=== PATIENT | female | born 2005 | race Caucasian/White ===

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

== ENCOUNTER → 2024-09-01 | Outpatient (CLI) | payer BC | LOC: LAB SHORT 11:36 → LAB 11:36 | DX: R82.81 Pyuria (principal) | CPT/HCPCS: 87086 ==

== ENCOUNTER 2024-09-06 21:46 | Emergency (ER) | payer BC ==
[~2024-09-06] VITALS: Ht 152.4 cm; Wt 54.4 kg
[2024-09-07 02:19] LABS: Source, Urine Clean Catch
[2024-09-07 02:23] LABS: Bilirubin, Urine Neg (Neg); Glucose Qualitative, Urine Neg (Neg); Ketones, Urine 4+ (Neg); Leukocyte Esterase, Urine Neg (Neg); Protein, Urine 2+ (Neg); Specific Gravity, Urine 1.025 (1.003-1.022); Urobilinogen, Urine 1+ (Normal)
[2024-09-07 02:28] VITALS: BP 105/70
[2024-09-07 02:36] LABS: Color, Urine Yellow (P-Yellow)
[2024-09-07 02:37] LABS: Red Blood Cells, Urine 0-2 /hpf (0-2); White Blood Cells, Urine 0-2 /hpf (0-5)
[2024-09-07] MEDS ORDERED: METO5A PO (02:59)
[2024-09-08] MEDS ORDERED: VITAMIN B-625 MG PO (12:55)
[2024-09-08] MEDS ORDERED: PROM12.5S PR (12:55)
== END 2024-09-07 03:21 | disposition home or self-care (01) ==
LOC: ER 21:46
PROVIDERS: Student in an Organized Health Care Education/Training Program
DX: O21.9 Vomiting of pregnancy, unspecified (principal); O99.891 Other specified diseases and conditions complicating pregnancy; R10.9 Unspecified abdominal pain; Z3A.01 Less than 8 weeks gestation of pregnancy; Z79.2 Long term (current) use of antibiotics; Z88.0 Allergy status to penicillin
CPT/HCPCS: 76770; 76801; 81001; 99284-25; A9270

== ENCOUNTER 2024-09-08 07:38 | Emergency (ER) | payer BC ==
[~2024-09-08] VITALS: Ht 152.4 cm; Wt 52.2 kg
[~2024-09-08 07:38] MED LIST changes: +METO5A PO
[2024-09-08] MEDS ORDERED: D5W-NS 1,000 ML IV SCH (08:25)
[2024-09-08] MEDS ORDERED: Ondansetron HCl 2 MG / ML 2ML Vial IV ONE (08:25)
[2024-09-08 09:28] LABS: BASOPHILS ABSOLUTE AUTO 0.06 K/mm3 (0.00-0.23); BASOPHILS PERCENT AUTO 1 % (0-2); EOSINOPHILS ABSOLUTE AUTO 0.01 K/mm3 (0.00-0.68); EOSINOPHILS PERCENT AUTO 0 % (0-6); Hematocrit 43.9 % (33.0-51.0); Hemoglobin 15.4 g/dL (11.5-16.0); IMMATURE GRAN ABSOLUTE AUTO 0.02 K/mm3 (0.00-0.10); IMMATURE GRAN PERCENT AUTO 0 % (0-1); LYMPHOCYTES ABSOLUTE AUTO 1.17 K/mm3 (0.84-5.20); LYMPHOCYTES PERCENT AUTO 11 % (21-46); MONOCYTES ABSOLUTE AUTO 0.64 K/mm3 (0.16-1.47); MONOCYTES PERCENT AUTO 6 % (4-13); Mean Corpuscular HGB Conc 35.1 g/dL (31.5-36.5); Mean Corpuscular Volume 85 fL (80-100); NEUTROPHILS ABSOLUTE AUTO 8.60 K/mm3 (1.96-9.15); NEUTROPHILS PERCENT AUTO 82 % (41-73); NRBC ABSOLUTE 0.00 K/mm3 (0.00-0.02); NRBC Auto 0.0 /100 WBC (0.0-0.2); Platelet Count 313 K/mm3 (150-400); RDW Coefficient Variation 11.9 % (11.7-14.2); RDW Standard Deviation 36.4 fL (35.1-46.3)
[2024-09-08 09:58] LABS: Alanine Aminotransfer (ALT/SGP 20.0 U/L (12-78); Albumin, Blood 4.3 g/dL (3.4-5.0); Albumin/Globulin Ratio 1.1 (0.8-1.8); Anion Gap 16.0 mmol/L (3-11); Aspartate Aminotrans (AST/SGOT 18.0 U/L (12-37); Bilirubin, Direct 0.2 mg/dL (0.0-0.3); Bilirubin, Indirect 0.4 mg/dL (0.1-0.7); Bilirubin, Total 0.6 mg/dL (0.1-1.0); Blood Urea Nitrogen 8.0 mg/dL (8-24); CO2, Blood 17.0 mmol/L (21-32); Calcium, Blood 9.6 mg/dL (8.5-10.1); Chloride, Blood 104.0 mmol/L (98-108); Creatinine, Blood 0.48 mg/dL (0.40-1.00); Globulin, Blood 3.8 g/dL (2.2-4.0); Glucose, Blood 72.0 mg/dL (70-99); Magnesium, Blood 1.9 mg/dL (1.6-2.4); Potassium, Blood 4.0 mmol/L (3.5-5.5); Sodium, Blood 133.0 mmol/L (136-145); Total Protein, Blood 8.1 g/dL (6.4-8.2)
[2024-09-08] MEDS ORDERED: DiphenhydrAMINE HCl 50 MG/ML 1ML Vial IV ONE (11:55)
[2024-09-08] MEDS ORDERED: Metoclopramide HCl 5MG / ML 2ML Vial IV ONE (11:55)
[2024-09-08 12:43] VITALS: BP 105/69
[2024-09-08] MEDS ORDERED: PROM12.5S PR (12:55)
[2024-09-08] MEDS ORDERED: VITAMIN B-625 MG PO (12:55)
== END 2024-09-08 13:31 | disposition home or self-care (01) ==
LOC: ER 07:38
PROVIDERS: Student in an Organized Health Care Education/Training Program
DX: O21.9 Vomiting of pregnancy, unspecified (principal); O99.281 Endocrine, nutritional and metabolic diseases complicating pregnancy, first trimester; E86.0 Dehydration; E88.89 Other specified metabolic disorders; Z3A.01 Less than 8 weeks gestation of pregnancy; Z88.0 Allergy status to penicillin
CPT/HCPCS: 80048; 80076; 83690; 83735; 85025; 96361; 96374; 96375; 99283-25; J1200; J2405; J2765; J7042; J7120

== ENCOUNTER 2024-09-14 19:37 | Emergency (ER) | payer BC ==
[~2024-09-14] VITALS: Ht 154.9 cm; Wt 52.2 kg
[~2024-09-14 19:37] MED LIST changes: +PROM12.5S PR; +VITAMIN B-625 MG PO
[2024-09-14 20:10] VITALS: BP 133/96
[2024-09-14] MEDS ORDERED: Metoclopramide HCl 5MG / ML 2ML Vial IV ONE (20:15)
[2024-09-14] MEDS ORDERED: NS 1,000 ML IV SCH (20:20)
[2024-09-14 20:34] LABS: BASOPHILS ABSOLUTE AUTO 0.04 K/mm3 (0.00-0.23); BASOPHILS PERCENT AUTO 0 % (0-2); EOSINOPHILS ABSOLUTE AUTO 0.00 K/mm3 (0.00-0.68); EOSINOPHILS PERCENT AUTO 0 % (0-6); Hematocrit 44.1 % (33.0-51.0); Hemoglobin 14.9 g/dL (11.5-16.0); IMMATURE GRAN ABSOLUTE AUTO 0.03 K/mm3 (0.00-0.10); IMMATURE GRAN PERCENT AUTO 0 % (0-1); LYMPHOCYTES ABSOLUTE AUTO 1.22 K/mm3 (0.84-5.20); LYMPHOCYTES PERCENT AUTO 11 % (21-46); MONOCYTES ABSOLUTE AUTO 0.78 K/mm3 (0.16-1.47); MONOCYTES PERCENT AUTO 7 % (4-13); Mean Corpuscular HGB Conc 33.8 g/dL (31.5-36.5); Mean Corpuscular Volume 87 fL (80-100); NEUTROPHILS ABSOLUTE AUTO 9.01 K/mm3 (1.96-9.15); NEUTROPHILS PERCENT AUTO 81 % (41-73); NRBC ABSOLUTE 0.00 K/mm3 (0.00-0.02); NRBC Auto 0.0 /100 WBC (0.0-0.2); Platelet Count 288 K/mm3 (150-400); RDW Coefficient Variation 12.0 % (11.7-14.2); RDW Standard Deviation 38.4 fL (35.1-46.3)
[2024-09-14 20:42] LABS: Source, Urine Clean Catch
[2024-09-14 20:45] LABS: Bilirubin, Urine Neg (Neg); Glucose Qualitative, Urine Neg (Neg); Ketones, Urine 4+ (Neg); Leukocyte Esterase, Urine 2+ (Neg); Protein, Urine 2+ (Neg); Specific Gravity, Urine 1.030 (1.003-1.022); Urobilinogen, Urine NORM (Normal)
[2024-09-14 20:46] LABS: Color, Urine Yellow (P-Yellow)
[2024-09-14 20:52] LABS: White Blood Cells, Urine 50-100 /hpf (0-5)
[2024-09-14 20:54] LABS: Alanine Aminotransfer (ALT/SGP 26.0 U/L (12-78); Albumin, Blood 4.3 g/dL (3.4-5.0); Albumin/Globulin Ratio 1.0 (0.8-1.8); Anion Gap 11.0 mmol/L (3-11); Aspartate Aminotrans (AST/SGOT 19.0 U/L (12-37); Bilirubin, Total 0.6 mg/dL (0.1-1.0); Blood Urea Nitrogen 8.0 mg/dL (8-24); CO2, Blood 21.0 mmol/L (21-32); Calcium, Blood 9.4 mg/dL (8.5-10.1); Chloride, Blood 105.0 mmol/L (98-108); Creatinine, Blood 0.46 mg/dL (0.40-1.00); Globulin, Blood 4.1 g/dL (2.2-4.0); Glucose, Blood 82.0 mg/dL (70-99); Potassium, Blood 4.3 mmol/L (3.5-5.5); Sodium, Blood 133.0 mmol/L (136-145); Total Protein, Blood 8.4 g/dL (6.4-8.2)
== END 2024-09-14 22:22 | disposition home or self-care (01) ==
LOC: ER 19:37
PROVIDERS: Physician Assistant
DX: O99.611 Diseases of the digestive system complicating pregnancy, first trimester (principal); K52.9 Noninfective gastroenteritis and colitis, unspecified; Z3A.08 8 weeks gestation of pregnancy; Z88.0 Allergy status to penicillin; Z79.899 Other long term (current) drug therapy
CPT/HCPCS: 80053; 81001; 85025; 87086; 96374; 99283-25; J2765; J7030

== ENCOUNTER 2024-09-25 16:14 | Inpatient (IN) | payer BC ==
[~2024-09-25] VITALS: Ht 154.9 cm; Wt 48.0 kg
[2024-09-25] MEDS ORDERED: NS 1,000 ML IV SCH ×2 (16:30→21:10)
[2024-09-25] MEDS ORDERED: Metoclopramide HCl 5MG / ML 2ML Vial IV ONE (16:30)
[2024-09-25 17:23] LABS: BASOPHILS ABSOLUTE AUTO 0.02 K/mm3 (0.00-0.23); BASOPHILS PERCENT AUTO 0 % (0-2); EOSINOPHILS ABSOLUTE AUTO 0.00 K/mm3 (0.00-0.68); EOSINOPHILS PERCENT AUTO 0 % (0-6); Hematocrit 43.7 % (33.0-51.0); Hemoglobin 15.4 g/dL (11.5-16.0); IMMATURE GRAN ABSOLUTE AUTO 0.03 K/mm3 (0.00-0.10); IMMATURE GRAN PERCENT AUTO 0 % (0-1); LYMPHOCYTES ABSOLUTE AUTO 1.19 K/mm3 (0.84-5.20); LYMPHOCYTES PERCENT AUTO 10 % (21-46); MONOCYTES ABSOLUTE AUTO 0.91 K/mm3 (0.16-1.47); MONOCYTES PERCENT AUTO 8 % (4-13); Mean Corpuscular HGB Conc 35.2 g/dL (31.5-36.5); Mean Corpuscular Volume 86 fL (80-100); NEUTROPHILS ABSOLUTE AUTO 9.59 K/mm3 (1.96-9.15); NEUTROPHILS PERCENT AUTO 82 % (41-73); NRBC ABSOLUTE 0.00 K/mm3 (0.00-0.02); NRBC Auto 0.0 /100 WBC (0.0-0.2); Platelet Count 277 K/mm3 (150-400); RDW Coefficient Variation 11.9 % (11.7-14.2); RDW Standard Deviation 37.4 fL (35.1-46.3)
[2024-09-25 17:38] LABS: Alanine Aminotransfer (ALT/SGP 25.0 U/L (12-78); Albumin, Blood 4.1 g/dL (3.4-5.0); Albumin/Globulin Ratio 0.9 (0.8-1.8); Anion Gap 15.0 mmol/L (3-11); Aspartate Aminotrans (AST/SGOT 17.0 U/L (12-37); Bilirubin, Total 0.5 mg/dL (0.1-1.0); Blood Urea Nitrogen 7.0 mg/dL (8-24); CO2, Blood 18.0 mmol/L (21-32); Calcium, Blood 9.3 mg/dL (8.5-10.1); Chloride, Blood 105.0 mmol/L (98-108); Creatinine, Blood 0.3 mg/dL (0.40-1.00); Globulin, Blood 4.4 g/dL (2.2-4.0); Glucose, Blood 73.0 mg/dL (70-99); Potassium, Blood 3.7 mmol/L (3.5-5.5); Sodium, Blood 134.0 mmol/L (136-145); Total Protein, Blood 8.5 g/dL (6.4-8.2)
[2024-09-25 19:31] LABS: Source, Urine Voided
[2024-09-25 19:39] LABS: Bilirubin, Urine Neg (Neg); Color, Urine Yellow (P-Yellow); Glucose Qualitative, Urine Neg (Neg); Ketones, Urine 4+ (Neg); Leukocyte Esterase, Urine 2+ (Neg); Protein, Urine 2+ (Neg); Specific Gravity, Urine 1.030 (1.003-1.022); Urobilinogen, Urine NORM (Normal)
[2024-09-25 20:50] LABS: Red Blood Cells, Urine 25-50 /hpf (0-2)
[2024-09-25] MEDS ORDERED: CEFDINIR300 M4 PO (21:13)
--- NOTE | 2024-09-26 | NUR ---
ARRIVAL NOTE PT ARRIVED TO UNIT AT 0000 TODAY R/T HYPEREMESIS AND UTI. PT A/OX4 WITH VSS. DENIES CHEST PAIN, N/V, SOB, N/T. REPORTS DISCOMFORT TO LOWER BACK AND LEFT ABD TENDERNESS. REPORTS CHRONIC CONSTIPATION WITH UNKNOWN LAST BM, POSSIBLY ONE WEEK AGO. IV PATENT AND SL. IS 10 WEEKS , . DENIES VAGINAL BLEEDING OR CRAMPING. ORIENTATION TO ROOM PROVIDED. [facility], STAYING IN OWN CLOTHING FOR COMFORT- RISK AND BENEFIT EDU PROVIDED. S/O ATTENTIVE AT BEDSIDE. PT DRINKING APPLE JUICE IN BED WHILE WATCHING TV AND TALKING WITH S/O, DE
[2024-09-26 00:02] VITALS: BP 116/70
[2024-09-26] MEDS ORDERED: Ondansetron HCl 2 MG / ML 2ML Vial IV PRN (01:10)
[2024-09-26] MEDS ORDERED: CeFAZolin Sodium 2,000 MG in NS 100 ML IV SCH (01:29)
[2024-09-26] MEDS ORDERED: Metoclopramide HCl 5MG / ML 2ML Vial IV PRN (02:30)
--- NOTE | 2024-09-26 04:17 | NUR ---
NOC SUMMARY- PT HAVING EPISODES OF NAUSEA WITH DRY HEAVES. PT MEDICATED PER MAR WITH SOME RELIEF. PT DENIES ANY OTHER ISSUES. CALL LIGHT IN REACH.
[2024-09-26 05:04] VITALS: BP 117/66
[2024-09-26] MEDS ORDERED: Metoclopramide HCl 5MG / ML 2ML Vial IV SCH (06:00)
[2024-09-26 08:17] VITALS: BP 109/67
[2024-09-26] MEDS ORDERED: Polyethylene Glycol 3350 17 gm PO PRN (09:25)
[2024-09-26 14:44] VITALS: BP 114/69
--- NOTE | 2024-09-26 17:20 | NUR ---
SHIFT SUMMARY PATIENT IS AOX4 IND/SBA IN ROOM. SHOWERED TODAY AND AMBULATES IN THE ELDER. DENIES PASSING FLATUS, MEDICATED PER EMAR FOR NAUSEA. TAKING IN SMALL SIPS OF WATER. REPORTS CRAMPING IN HER ABD. REPORTS NO BM FOR OVER 1 WEEK, ONE BOUGHT OF EMESIS TODAY. IV FLUIDS RUNNING. CALL LIGHT IN REACH. AND VSS.
[2024-09-26 19:46] VITALS: BP 130/79
--- NOTE | 2024-09-26 22:16 | NUR ---
ASSUMING CARE OF PATIENT AT THIS TIME. REPORT FROM JUNO THOMAS.
--- NOTE | 2024-09-27 03:29 | NUR ---
RN TO ROOM TO ROUND; PT SLEEPING WITH EQUAL AND UNLABORED BREATHING; CALL LIGHT WITHIN REACH. PARTNER AT BEDSIDE.
[2024-09-27 04:32] VITALS: BP 112/69
[2024-09-27 05:12] LABS: BASOPHILS ABSOLUTE AUTO 0.02 K/mm3 (0.00-0.23); BASOPHILS PERCENT AUTO 0 % (0-2); EOSINOPHILS ABSOLUTE AUTO 0.09 K/mm3 (0.00-0.68); EOSINOPHILS PERCENT AUTO 1 % (0-6); Hematocrit 38.1 % (33.0-51.0); Hemoglobin 12.9 g/dL (11.5-16.0); IMMATURE GRAN ABSOLUTE AUTO 0.03 K/mm3 (0.00-0.10); IMMATURE GRAN PERCENT AUTO 0 % (0-1); LYMPHOCYTES ABSOLUTE AUTO 1.89 K/mm3 (0.84-5.20); LYMPHOCYTES PERCENT AUTO 23 % (21-46); MONOCYTES ABSOLUTE AUTO 0.87 K/mm3 (0.16-1.47); MONOCYTES PERCENT AUTO 11 % (4-13); Mean Corpuscular HGB Conc 33.9 g/dL (31.5-36.5); Mean Corpuscular Volume 86 fL (80-100); NEUTROPHILS ABSOLUTE AUTO 5.27 K/mm3 (1.96-9.15); NEUTROPHILS PERCENT AUTO 65 % (41-73); NRBC ABSOLUTE 0.00 K/mm3 (0.00-0.02); NRBC Auto 0.0 /100 WBC (0.0-0.2); Platelet Count 232 K/mm3 (150-400); RDW Coefficient Variation 11.9 % (11.7-14.2); RDW Standard Deviation 37.6 fL (35.1-46.3)
--- NOTE | 2024-09-27 05:30 | NUR ---
SHIFT SUMMARY NO ACUTE EVENTS OVERNIGHT. PT SLEPT MOST OF SHIFT. PT PARTNER AT BEDSIDE.
[2024-09-27 06:06] LABS: Anion Gap 14.0 mmol/L (3-11); Blood Urea Nitrogen 3.0 mg/dL (8-24); CO2, Blood 14.0 mmol/L (21-32); Calcium, Blood 8.9 mg/dL (8.5-10.1); Chloride, Blood 109.0 mmol/L (98-108); Creatinine, Blood 0.36 mg/dL (0.40-1.00); Glucose, Blood 59.0 mg/dL (70-99); Potassium, Blood 3.9 mmol/L (3.5-5.5); Sodium, Blood 133.0 mmol/L (136-145)
[2024-09-27 07:26] VITALS: BP 114/63
[2024-09-27 14:49] VITALS: BP 121/68
--- NOTE | 2024-09-27 17:27 | NUR ---
Shift Summary pt resting. one episode of emesis early this am. Doing well since. Tolerating Regular diet without nausea/emesis. iv infusing. will continue to monitor.
[2024-09-27 19:25] VITALS: BP 114/62
--- NOTE | 2024-09-28 04:38 | NUR ---
NOC SUMMARY- PT HAS BEEN AMBULATING AND VOIDING. PT DENIES HAVING BM. PT GIVEN ORDERED BOWEL CARE. PT HAS NOT REPORTED ANY EPISODES OF NAUSEA. PT RESTING QUIETLY AND IN NO DISTRESS. CALL LIGHT IN REACH.
[2024-09-28 04:44] VITALS: BP 107/67
[2024-09-28 05:02] LABS: BASOPHILS ABSOLUTE AUTO 0.01 K/mm3 (0.00-0.23); BASOPHILS PERCENT AUTO 0 % (0-2); EOSINOPHILS ABSOLUTE AUTO 0.07 K/mm3 (0.00-0.68); EOSINOPHILS PERCENT AUTO 1 % (0-6); Hematocrit 32.8 % (33.0-51.0); Hemoglobin 11.6 g/dL (11.5-16.0); IMMATURE GRAN ABSOLUTE AUTO 0.02 K/mm3 (0.00-0.10); IMMATURE GRAN PERCENT AUTO 0 % (0-1); LYMPHOCYTES ABSOLUTE AUTO 2.18 K/mm3 (0.84-5.20); LYMPHOCYTES PERCENT AUTO 28 % (21-46); MONOCYTES ABSOLUTE AUTO 0.97 K/mm3 (0.16-1.47); MONOCYTES PERCENT AUTO 13 % (4-13); Mean Corpuscular HGB Conc 35.4 g/dL (31.5-36.5); Mean Corpuscular Volume 84 fL (80-100); NEUTROPHILS ABSOLUTE AUTO 4.47 K/mm3 (1.96-9.15); NEUTROPHILS PERCENT AUTO 58 % (41-73); NRBC ABSOLUTE 0.00 K/mm3 (0.00-0.02); NRBC Auto 0.0 /100 WBC (0.0-0.2); Platelet Count 209 K/mm3 (150-400); RDW Coefficient Variation 12.0 % (11.7-14.2); RDW Standard Deviation 36.7 fL (35.1-46.3)
[2024-09-28 05:25] LABS: Anion Gap 8.0 mmol/L (3-11); Blood Urea Nitrogen 3.0 mg/dL (8-24); CO2, Blood 22.0 mmol/L (21-32); Calcium, Blood 8.0 mg/dL (8.5-10.1); Chloride, Blood 112.0 mmol/L (98-108); Creatinine, Blood 0.28 mg/dL (0.40-1.00); Glucose, Blood 104.0 mg/dL (70-99); Potassium, Blood 3.3 mmol/L (3.5-5.5); Sodium, Blood 139.0 mmol/L (136-145)
[2024-09-28 08:45] VITALS: BP 113/69
[2024-09-28 15:40] VITALS: BP 103/64
[2024-09-28 19:42] VITALS: BP 109/58
--- NOTE | 2024-09-28 21:40 | NUR ---
ASSUMED CARE ASSUMED CARE OF PATIENT. REPORT RECEIVED FROM JUNO FISCHER. PT APPEARS TO BE SLEEPING COMFORTABLY IN BED, RESP EVEN/UNLABORED. HAS CALL LIGHT IN REACH. IVF INFUSING PER ORDERS. FAMILY ATTENTIVE AT BEDSIDE AND DENIES NEEDS/CONCERNS.
--- NOTE | 2024-09-29 03:30 | NUR ---
SHIFT SUMMARY NO ACUTE CHANGES TONIGHT. PT APPEARS TO HAVE SLEPT T/O ENTIRE NIGHT. IS A/OX4 WITH VSS. IVF INFUSING PER EMAR. REPORTS PASSING FLATUS. FAMILY SUPPORTIVE AT BEDSIDE. PLAN TO CONT AND ENCOURAGE BOWEL CARE. PT IS CURRENTLY RESTING IN BED WITH EYES CLOSED AND CALL LIGHT IN REACH. WILL GIVE REPORT TO ONCOMING RN.
[2024-09-29 03:37] VITALS: BP 114/73
[2024-09-29 07:22] VITALS: BP 120/66
[2024-09-29 08:25] LABS: BASOPHILS ABSOLUTE AUTO 0.02 K/mm3 (0.00-0.23); BASOPHILS PERCENT AUTO 0 % (0-2); EOSINOPHILS ABSOLUTE AUTO 0.10 K/mm3 (0.00-0.68); EOSINOPHILS PERCENT AUTO 2 % (0-6); Hematocrit 31.9 % (33.0-51.0); Hemoglobin 11.2 g/dL (11.5-16.0); IMMATURE GRAN ABSOLUTE AUTO 0.02 K/mm3 (0.00-0.10); IMMATURE GRAN PERCENT AUTO 0 % (0-1); LYMPHOCYTES ABSOLUTE AUTO 1.73 K/mm3 (0.84-5.20); LYMPHOCYTES PERCENT AUTO 30 % (21-46); MONOCYTES ABSOLUTE AUTO 0.58 K/mm3 (0.16-1.47); MONOCYTES PERCENT AUTO 10 % (4-13); Mean Corpuscular HGB Conc 35.1 g/dL (31.5-36.5); Mean Corpuscular Volume 84 fL (80-100); NEUTROPHILS ABSOLUTE AUTO 3.42 K/mm3 (1.96-9.15); NEUTROPHILS PERCENT AUTO 58 % (41-73); NRBC ABSOLUTE 0.00 K/mm3 (0.00-0.02); NRBC Auto 0.0 /100 WBC (0.0-0.2); Platelet Count 183 K/mm3 (150-400); RDW Coefficient Variation 12.6 % (11.7-14.2); RDW Standard Deviation 38.2 fL (35.1-46.3)
[2024-09-29 08:54] LABS: Anion Gap 7.0 mmol/L (3-11); Blood Urea Nitrogen 3.0 mg/dL (8-24); CO2, Blood 24.0 mmol/L (21-32); Calcium, Blood 8.3 mg/dL (8.5-10.1); Chloride, Blood 109.0 mmol/L (98-108); Creatinine, Blood 0.26 mg/dL (0.40-1.00); Glucose, Blood 94.0 mg/dL (70-99); Potassium, Blood 3.3 mmol/L (3.5-5.5); Sodium, Blood 137.0 mmol/L (136-145)
[2024-09-29] MEDS ORDERED: REGLAN1013 PO (09:30)
[2024-09-29 09:41] VITALS: BP 115/63
[2024-09-29] MEDS ORDERED: SENN187 PO (09:45)
[2024-09-29] MEDS ORDERED: DOCU100 PO (09:45)
[2024-09-29] MEDS ORDERED: MIRALAX17 GM PO (09:45)
--- NOTE | 2024-09-29 10:14 | NUR ---
discharged reviewed dc instructions w/pt; verbalized understanding. iv dc'd, catheter intact. vss. pt declined wc, electing to leave unit by ambulation, accompanied by family who had possessions and dc paperwork in hand.
== END 2024-09-29 10:20 | disposition home or self-care (01) | DRG 833 ==
LOC: ER 16:14 → ERHOLD 21:27 → SURS 21:27
PROVIDERS: Emergency Medicine; ADMIT Obstetrics & Gynecology
DX: O21.0 Mild hyperemesis gravidarum (principal); K59.00 Constipation, unspecified; O26.893 Other specified pregnancy related conditions, third trimester; R30.0 Dysuria; O99.611 Diseases of the digestive system complicating pregnancy, first trimester; Z3A.10 10 weeks gestation of pregnancy; Z88.0 Allergy status to penicillin; Z79.899 Other long term (current) drug therapy
CPT/HCPCS: 36415; 76857; 80048; 80053; 81001; 83690; 85025; 87086; 96374; 96375; 96376; 99285-25; A9270; G0378; J0690; J2405; J2765; J2919; J7030; J7120

== ENCOUNTER 2024-10-02 15:23 | Emergency (ER) | payer BC ==
[~2024-10-02] VITALS: Ht 154.9 cm; Wt 46.7 kg
[~2024-10-02 15:23] MED LIST changes: +CEFDINIR300 M4 PO; +DOCU100 PO; +MIRALAX17 GM PO; +REGLAN1013 PO; +SENN187 PO
[2024-10-02] MEDS ORDERED: Ondansetron HCl 2 MG / ML 2ML Vial IV ONE (16:05)
[2024-10-02 16:12] LABS: BASOPHILS ABSOLUTE AUTO 0.03 K/mm3 (0.00-0.23); BASOPHILS PERCENT AUTO 0 % (0-2); EOSINOPHILS ABSOLUTE AUTO 0.04 K/mm3 (0.00-0.68); EOSINOPHILS PERCENT AUTO 0 % (0-6); Hematocrit 44.0 % (33.0-51.0); Hemoglobin 15.4 g/dL (11.5-16.0); IMMATURE GRAN ABSOLUTE AUTO 0.03 K/mm3 (0.00-0.10); IMMATURE GRAN PERCENT AUTO 0 % (0-1); LYMPHOCYTES ABSOLUTE AUTO 1.92 K/mm3 (0.84-5.20); LYMPHOCYTES PERCENT AUTO 17 % (21-46); MONOCYTES ABSOLUTE AUTO 1.10 K/mm3 (0.16-1.47); MONOCYTES PERCENT AUTO 10 % (4-13); Mean Corpuscular HGB Conc 35.0 g/dL (31.5-36.5); Mean Corpuscular Volume 84 fL (80-100); NEUTROPHILS ABSOLUTE AUTO 8.49 K/mm3 (1.96-9.15); NEUTROPHILS PERCENT AUTO 73 % (41-73); NRBC ABSOLUTE 0.00 K/mm3 (0.00-0.02); NRBC Auto 0.0 /100 WBC (0.0-0.2); Platelet Count 327 K/mm3 (150-400); RDW Coefficient Variation 12.1 % (11.7-14.2); RDW Standard Deviation 36.6 fL (35.1-46.3)
[2024-10-02 16:44] LABS: Alanine Aminotransfer (ALT/SGP 32.0 U/L (12-78); Albumin, Blood 4.1 g/dL (3.4-5.0); Albumin/Globulin Ratio 1.0 (0.8-1.8); Anion Gap 14.0 mmol/L (3-11); Aspartate Aminotrans (AST/SGOT 16.0 U/L (12-37); Bilirubin, Total 0.5 mg/dL (0.1-1.0); Blood Urea Nitrogen 10.0 mg/dL (8-24); CO2, Blood 21.0 mmol/L (21-32); Calcium, Blood 9.7 mg/dL (8.5-10.1); Chloride, Blood 101.0 mmol/L (98-108); Creatinine, Blood 0.36 mg/dL (0.40-1.00); Globulin, Blood 4.0 g/dL (2.2-4.0); Glucose, Blood 97.0 mg/dL (70-99); Potassium, Blood 3.6 mmol/L (3.5-5.5); Sodium, Blood 132.0 mmol/L (136-145); Total Protein, Blood 8.1 g/dL (6.4-8.2)
[2024-10-02] MEDS ORDERED: METO5A (17:11)
[2024-10-02] MEDS ORDERED: PRED1 (17:11)
[2024-10-02] MEDS ORDERED: NS 1,000 ML IV SCH ×2 (17:15→18:30)
[2024-10-02 17:44] LABS: Source, Urine Clean Catch
[2024-10-02 17:47] LABS: Bilirubin, Urine Neg (Neg); Color, Urine Yellow (P-Yellow); Glucose Qualitative, Urine Neg (Neg); Ketones, Urine 4+ (Neg); Leukocyte Esterase, Urine 3+ (Neg); Protein, Urine 2+ (Neg); Specific Gravity, Urine 1.025 (1.003-1.022); Urobilinogen, Urine 1+ (Normal)
[2024-10-02 18:42] VITALS: BP 111/75
[2024-10-02 18:52] LABS: White Blood Cells, Urine 50-100 /hpf (0-5)
[2024-10-02] MEDS ORDERED: TRANSDERM-SCOP1 EA13 TD (19:00)
== END 2024-10-02 20:00 | disposition home or self-care (01) ==
LOC: ER 15:23
PROVIDERS: Physician Assistant
DX: O21.1 Hyperemesis gravidarum with metabolic disturbance (principal); Z3A.11 11 weeks gestation of pregnancy; Z88.0 Allergy status to penicillin; Z79.899 Other long term (current) drug therapy
CPT/HCPCS: 76801; 80053; 81001; 84702; 85025; 87086; 93005; 93010; A9270; J2405; J2919; J7030

== ENCOUNTER 2024-10-04 17:05 | Emergency (ER) | payer BC ==
[~2024-10-04] VITALS: Ht 154.9 cm; Wt 46.3 kg
[~2024-10-04 17:05] MED LIST changes: +METO5A; +PRED1; +TRANSDERM-SCOP1 EA13 TD
[2024-10-04 18:33] LABS: BASOPHILS ABSOLUTE AUTO 0.02 K/mm3 (0.00-0.23); BASOPHILS PERCENT AUTO 0 % (0-2); EOSINOPHILS ABSOLUTE AUTO 0.02 K/mm3 (0.00-0.68); EOSINOPHILS PERCENT AUTO 0 % (0-6); Hematocrit 40.9 % (33.0-51.0); Hemoglobin 14.0 g/dL (11.5-16.0); IMMATURE GRAN ABSOLUTE AUTO 0.04 K/mm3 (0.00-0.10); IMMATURE GRAN PERCENT AUTO 0 % (0-1); LYMPHOCYTES ABSOLUTE AUTO 1.82 K/mm3 (0.84-5.20); LYMPHOCYTES PERCENT AUTO 14 % (21-46); MONOCYTES ABSOLUTE AUTO 1.06 K/mm3 (0.16-1.47); MONOCYTES PERCENT AUTO 8 % (4-13); Mean Corpuscular HGB Conc 34.2 g/dL (31.5-36.5); Mean Corpuscular Volume 85 fL (80-100); NEUTROPHILS ABSOLUTE AUTO 9.72 K/mm3 (1.96-9.15); NEUTROPHILS PERCENT AUTO 77 % (41-73); NRBC ABSOLUTE 0.00 K/mm3 (0.00-0.02); NRBC Auto 0.0 /100 WBC (0.0-0.2); Platelet Count 295 K/mm3 (150-400); RDW Coefficient Variation 11.9 % (11.7-14.2); RDW Standard Deviation 37.1 fL (35.1-46.3)
[2024-10-04 19:12] LABS: Alanine Aminotransfer (ALT/SGP 32.0 U/L (12-78); Albumin, Blood 3.9 g/dL (3.4-5.0); Albumin/Globulin Ratio 1.1 (0.8-1.8); Anion Gap 12.0 mmol/L (3-11); Aspartate Aminotrans (AST/SGOT 19.0 U/L (12-37); Beta HCG, Quantitative, Serum 171095.0 mIU/mL (0-3); Bilirubin, Total 0.5 mg/dL (0.1-1.0); Blood Urea Nitrogen 9.0 mg/dL (8-24); CO2, Blood 20.0 mmol/L (21-32); Calcium, Blood 9.2 mg/dL (8.5-10.1); Chloride, Blood 105.0 mmol/L (98-108); Creatinine, Blood 0.34 mg/dL (0.40-1.00); Globulin, Blood 3.6 g/dL (2.2-4.0); Glucose, Blood 87.0 mg/dL (70-99); Potassium, Blood 3.6 mmol/L (3.5-5.5); Sodium, Blood 133.0 mmol/L (136-145); Total Protein, Blood 7.5 g/dL (6.4-8.2)
[2024-10-04] MEDS ORDERED: Ondansetron HCl 2 MG / ML 2ML Vial IV ONE (22:00)
[2024-10-04] MEDS ORDERED: DiphenhydrAMINE HCl 50 MG/ML 1ML Vial IV ONE (22:00)
[2024-10-04] MEDS ORDERED: Metoclopramide HCl 5MG / ML 2ML Vial IV ONE (23:25)
[2024-10-05] VITALS: BP 111/68
== END 2024-10-05 00:59 | disposition home or self-care (01) ==
LOC: ER 17:05
PROVIDERS: Emergency Medicine
DX: O21.9 Vomiting of pregnancy, unspecified (principal); Z3A.11 11 weeks gestation of pregnancy; Z79.899 Other long term (current) drug therapy; Z88.0 Allergy status to penicillin
CPT/HCPCS: 80053; 84702; 85025; 96361; 96374; 96375; 99284-25; J1200; J2405; J2765; J7120

== ENCOUNTER 2024-11-21 00:32 | Day surgery (SDC) | payer OTHER ==
[2024-11-21] MEDS ORDERED: Ondansetron HCl 2 MG / ML 2ML Vial IV SCH (07:00)
[2024-11-21 10:12] VITALS: BP 107/66
== END 2024-11-21 11:31 | disposition home or self-care (01) ==
LOC: ATC 00:32
DX: O21.0 Mild hyperemesis gravidarum (principal); Z88.0 Allergy status to penicillin
CPT/HCPCS: 96361; 96374; 96375; J2405; J2919; J7120

== ENCOUNTER 2024-11-24 00:39 | Day surgery (SDC) | payer OTHER ==
[2024-11-24] MEDS ORDERED: Ondansetron HCl 2 MG / ML 2ML Vial IV SCH (07:00)
[2024-11-24 07:45] VITALS: BP 97/67
== END 2024-11-24 08:57 | disposition home or self-care (01) ==
LOC: ATC 00:39
DX: O21.0 Mild hyperemesis gravidarum (principal); Z88.0 Allergy status to penicillin
CPT/HCPCS: 96361; 96374; 96375; J2405; J2919; J7120

== ENCOUNTER 2024-11-30 01:58 | Day surgery (SDC) | payer OTHER ==
[2024-11-30] MEDS ORDERED: Ondansetron HCl 2 MG / ML 2ML Vial IV SCH (07:35)
[2024-11-30 08:52] VITALS: BP 103/73
== END 2024-11-30 10:05 | disposition home or self-care (01) ==
LOC: ATC 01:58
DX: O21.0 Mild hyperemesis gravidarum (principal)
CPT/HCPCS: 96361; 96374; 96375; J2405; J2919; J7120

== ENCOUNTER 2024-12-02 02:15 | Day surgery (SDC) | payer OTHER ==
[2024-12-02] MEDS ORDERED: Ondansetron HCl 2 MG / ML 2ML Vial IV SCH (07:00)
[2024-12-02 09:51] VITALS: BP 108/63
== END 2024-12-02 10:54 | disposition home or self-care (01) ==
LOC: ATC 02:15
DX: O21.0 Mild hyperemesis gravidarum (principal); Z88.0 Allergy status to penicillin
CPT/HCPCS: 96361; 96374; 96375; J2405; J2919; J7120

== ENCOUNTER 2024-12-05 07:42 | Day surgery (SDC) | payer OTHER ==
[~2024-12-05 07:42] MED LIST changes: +Ondansetron HCl 2 MG / ML 2ML Vial IV SCH
[2024-12-05 10:15] VITALS: BP 122/68
== END 2024-12-05 11:29 | disposition home or self-care (01) ==
LOC: ATC 07:42
DX: O21.0 Mild hyperemesis gravidarum (principal); Z3A.00 Weeks of gestation of pregnancy not specified; Z79.899 Other long term (current) drug therapy; Z88.0 Allergy status to penicillin
CPT/HCPCS: 96361; 96374; 96375; J2405; J2919; J7120

== ENCOUNTER 2024-12-09 01:05 | Day surgery (SDC) | payer OTHER ==
[~2024-12-09 01:05] MED LIST changes: -Ondansetron HCl 2 MG / ML 2ML Vial IV SCH
[2024-12-09] MEDS ORDERED: Ondansetron HCl 2 MG / ML 2ML Vial IV SCH (07:00)
[2024-12-09 08:05] VITALS: BP 112/67
== END 2024-12-09 09:18 | disposition home or self-care (01) ==
LOC: ATC 01:05
DX: O21.0 Mild hyperemesis gravidarum (principal); Z88.0 Allergy status to penicillin
CPT/HCPCS: J2405; J2919; J7120

== ENCOUNTER 2024-12-18 03:14 | Day surgery (SDC) | payer OTHER ==
[2024-12-18] MEDS ORDERED: Ondansetron HCl 2 MG / ML 2ML Vial IV SCH (06:00)
[2024-12-18 10:10] VITALS: BP 107/62
== END 2024-12-18 11:23 | disposition home or self-care (01) ==
LOC: ATC 03:14
DX: O21.0 Mild hyperemesis gravidarum (principal); Z79.2 Long term (current) use of antibiotics; Z79.899 Other long term (current) drug therapy; Z88.0 Allergy status to penicillin; Z3A.00 Weeks of gestation of pregnancy not specified
CPT/HCPCS: 96361; 96374; 96375; J2405; J2919; J7120

== ENCOUNTER 2024-12-20 01:45 | Day surgery (SDC) | payer OTHER ==
[2024-12-20] MEDS ORDERED: Ondansetron HCl 2 MG / ML 2ML Vial IV SCH (06:00)
[2024-12-20 14:00] VITALS: BP 121/78
== END 2024-12-20 15:13 | disposition home or self-care (01) ==
LOC: ATC 01:45
DX: O21.0 Mild hyperemesis gravidarum (principal); Z3A.00 Weeks of gestation of pregnancy not specified; Z79.2 Long term (current) use of antibiotics; Z79.899 Other long term (current) drug therapy
CPT/HCPCS: 96361; 96374; 96375; J2405; J2919; J7120

== ENCOUNTER 2024-12-24 02:19 | Day surgery (SDC) | payer OTHER ==
[2024-12-24] MEDS ORDERED: Ondansetron HCl 2 MG / ML 2ML Vial IV SCH (08:00)
[2024-12-24 10:37] VITALS: BP 117/67
== END 2024-12-24 11:50 | disposition home or self-care (01) ==
LOC: ATC 02:19
DX: O21.0 Mild hyperemesis gravidarum (principal); Z36.9 Encounter for antenatal screening, unspecified; Z88.0 Allergy status to penicillin
CPT/HCPCS: 96361; 96374; 96375; J2405; J2919; J7120

== ENCOUNTER 2024-12-26 00:36 | Day surgery (SDC) | payer OTHER ==
[2024-12-26] MEDS ORDERED: Ondansetron HCl 2 MG / ML 2ML Vial IV SCH (06:00)
[2024-12-26 08:16] VITALS: BP 110/79
== END 2024-12-26 09:20 | disposition home or self-care (01) ==
LOC: ATC 00:36
DX: O21.0 Mild hyperemesis gravidarum (principal); Z88.0 Allergy status to penicillin
CPT/HCPCS: 96361; 96374; 96375; J2405; J2919; J7120

== ENCOUNTER 2024-12-29 01:37 | Day surgery (SDC) | payer OTHER ==
[2024-12-29] MEDS ORDERED: Ondansetron HCl 2 MG / ML 2ML Vial IV SCH (06:00)
[2024-12-29 10:00] VITALS: BP 100/60
== END 2024-12-29 11:17 | disposition home or self-care (01) ==
LOC: ATC 01:37
DX: O21.0 Mild hyperemesis gravidarum (principal); Z36.9 Encounter for antenatal screening, unspecified; Z88.0 Allergy status to penicillin
CPT/HCPCS: 96361; 96374; 96375; J2405; J2919; J7120

== ENCOUNTER 2024-12-31 00:28 | Day surgery (SDC) | payer OTHER ==
[2024-12-31] MEDS ORDERED: Ondansetron HCl 2 MG / ML 2ML Vial IV SCH (07:00)
[2024-12-31 16:15] VITALS: BP 118/67
== END 2024-12-31 17:17 | disposition home or self-care (01) ==
LOC: ATC 00:28
DX: O21.0 Mild hyperemesis gravidarum (principal); Z88.0 Allergy status to penicillin
CPT/HCPCS: 96361; 96374; 96375; J2405; J2919; J7120

== ENCOUNTER 2025-01-05 01:20 | Day surgery (SDC) | payer OTHER ==
[2025-01-05] MEDS ORDERED: Ondansetron HCl 2 MG / ML 2ML Vial IV SCH (07:00)
[2025-01-05 14:58] VITALS: BP 111/74
== END 2025-01-05 16:13 | disposition home or self-care (01) ==
LOC: ATC 01:20
DX: O21.0 Mild hyperemesis gravidarum (principal); Z36.9 Encounter for antenatal screening, unspecified; Z88.0 Allergy status to penicillin
CPT/HCPCS: 96360; 96374; J2405; J2919; J7120

== ENCOUNTER 2025-01-08 02:15 | Day surgery (SDC) | payer OTHER ==
[2025-01-08] MEDS ORDERED: Ondansetron HCl 2 MG / ML 2ML Vial IV SCH (06:00)
[2025-01-08 16:10] VITALS: BP 115/70
== END 2025-01-08 17:29 | disposition home or self-care (01) ==
LOC: ATC 02:15
DX: O21.0 Mild hyperemesis gravidarum (principal); Z3A.00 Weeks of gestation of pregnancy not specified; Z79.899 Other long term (current) drug therapy; Z88.0 Allergy status to penicillin
CPT/HCPCS: 96360; 96374; 96375; J2405; J2919; J7120

== ENCOUNTER 2025-01-16 02:26 | Day surgery (SDC) | payer OTHER ==
[2025-01-16] MEDS ORDERED: Ondansetron HCl 2 MG / ML 2ML Vial IV SCH (06:00)
[2025-01-16 10:32] VITALS: BP 105/70
== END 2025-01-16 11:34 | disposition home or self-care (01) ==
LOC: ATC 02:26
DX: O21.0 Mild hyperemesis gravidarum (principal); Z36.9 Encounter for antenatal screening, unspecified; Z88.0 Allergy status to penicillin
CPT/HCPCS: 96361; 96374; 96375; J2405; J2919; J7120

== ENCOUNTER 2025-01-23 01:17 | Day surgery (SDC) | payer OTHER ==
[2025-01-23] MEDS ORDERED: Ondansetron HCl 2 MG / ML 2ML Vial IV SCH (06:00)
[2025-01-23 10:14] VITALS: BP 130/81
== END 2025-01-23 11:16 | disposition home or self-care (01) ==
LOC: ATC 01:17
DX: O21.0 Mild hyperemesis gravidarum (principal); Z88.0 Allergy status to penicillin
CPT/HCPCS: 96361; 96374; 96375; J2405; J2919; J7120

== ENCOUNTER 2025-01-27 01:19 | Day surgery (SDC) | payer OTHER ==
[2025-01-27] MEDS ORDERED: Ondansetron HCl 2 MG / ML 2ML Vial IV SCH (06:00)
[2025-01-27 07:38] VITALS: BP 110/67
== END 2025-01-27 08:53 | disposition home or self-care (01) ==
LOC: ATC 01:19
DX: O21.0 Mild hyperemesis gravidarum (principal); Z36.9 Encounter for antenatal screening, unspecified; Z88.0 Allergy status to penicillin
CPT/HCPCS: 96361; 96374; 96375; J2405; J2919; J7120

== ENCOUNTER 2025-01-30 01:01 | Day surgery (SDC) | payer OTHER ==
[2025-01-30] MEDS ORDERED: Ondansetron HCl 2 MG / ML 2ML Vial IV SCH (06:35)
[2025-01-30 07:42] VITALS: BP 111/71
== END 2025-01-30 08:47 | disposition home or self-care (01) ==
LOC: ATC 01:01
DX: O21.0 Mild hyperemesis gravidarum (principal); Z36.9 Encounter for antenatal screening, unspecified; Z88.0 Allergy status to penicillin
CPT/HCPCS: 96361; 96374; 96375; J2405; J2919; J7120

== ENCOUNTER 2025-02-03 02:38 | Day surgery (SDC) | payer OTHER ==
[2025-02-03] MEDS ORDERED: Ondansetron HCl 2 MG / ML 2ML Vial IV SCH (07:00)
[2025-02-03 11:07] VITALS: BP 106/70
== END 2025-02-03 12:10 | disposition home or self-care (01) ==
LOC: ATC 02:38
DX: O21.0 Mild hyperemesis gravidarum (principal); Z3A.00 Weeks of gestation of pregnancy not specified; Z79.899 Other long term (current) drug therapy; Z88.0 Allergy status to penicillin
CPT/HCPCS: 96361; 96374; 96375; J2405; J2919; J7120

== ENCOUNTER 2025-02-06 03:37 | Day surgery (SDC) | payer OTHER ==
[2025-02-06] MEDS ORDERED: Ondansetron HCl 2 MG / ML 2ML Vial IV SCH (07:00)
[2025-02-06 14:00] VITALS: BP 123/73
== END 2025-02-06 15:12 | disposition home or self-care (01) ==
LOC: ATC 03:37
DX: O21.0 Mild hyperemesis gravidarum (principal); Z88.0 Allergy status to penicillin
CPT/HCPCS: 96361; 96374; J2405; J2919; J7120

== ENCOUNTER 2025-02-12 03:34 | Day surgery (SDC) | payer OTHER ==
[2025-02-12] MEDS ORDERED: Ondansetron HCl 2 MG / ML 2ML Vial IV SCH (06:00)
[2025-02-12 09:06] VITALS: BP 121/74
== END 2025-02-12 10:20 | disposition home or self-care (01) ==
LOC: ATC 03:34
DX: O21.0 Mild hyperemesis gravidarum (principal); O99.350 Diseases of the nervous system complicating pregnancy, unspecified trimester; G40.909 Epilepsy, unspecified, not intractable, without status epilepticus; Z3A.00 Weeks of gestation of pregnancy not specified; Z79.899 Other long term (current) drug therapy; Z88.0 Allergy status to penicillin
CPT/HCPCS: 96361; 96374; 96375; J2405; J2919; J7120

== ENCOUNTER 2025-02-12 22:55 | Observation (INO) | payer OTHER ==
[2025-02-12 23:24] VITALS: BP 129/83
[2025-02-12 23:26] LABS: BASOPHILS ABSOLUTE AUTO 0.04 K/mm3 (0.00-0.23); BASOPHILS PERCENT AUTO 0 % (0-2); EOSINOPHILS ABSOLUTE AUTO 0.01 K/mm3 (0.00-0.68); EOSINOPHILS PERCENT AUTO 0 % (0-6); Hematocrit 29.7 % (33.0-51.0); Hemoglobin 9.8 g/dL (11.5-16.0); IMMATURE GRAN ABSOLUTE AUTO 0.24 K/mm3 (0.00-0.10); IMMATURE GRAN PERCENT AUTO 1 % (0-1); LYMPHOCYTES ABSOLUTE AUTO 2.96 K/mm3 (0.84-5.20); LYMPHOCYTES PERCENT AUTO 15 % (21-46); MONOCYTES ABSOLUTE AUTO 1.56 K/mm3 (0.16-1.47); MONOCYTES PERCENT AUTO 8 % (4-13); Mean Corpuscular HGB Conc 33.0 g/dL (31.5-36.5); Mean Corpuscular Volume 81 fL (80-100); NEUTROPHILS ABSOLUTE AUTO 15.05 K/mm3 (1.96-9.15); NEUTROPHILS PERCENT AUTO 76 % (41-73); NRBC ABSOLUTE 0.00 K/mm3 (0.00-0.02); NRBC Auto 0.0 /100 WBC (0.0-0.2); Platelet Count 332 K/mm3 (150-400); RDW Coefficient Variation 12.7 % (11.7-14.2); RDW Standard Deviation 37.2 fL (35.1-46.3)
[2025-02-12 23:29] VITALS: BP 125/73
[2025-02-12 23:35] VITALS: BP 104/73
--- NOTE | 2025-02-12 23:38 | NUR ---
QBL 76ML, VAGINAL BLEEDING BRIGHT RED
[2025-02-12 23:41] VITALS: BP 125/81
[2025-02-12 23:44] VITALS: BP 127/80
--- NOTE | 2025-02-12 23:49 | NUR ---
QBL OF 11 MLS WITH PAD CHANGE. RATNA BLOOD.
[2025-02-12 23:55] VITALS: BP 125/77
[2025-02-13] VITALS (15 sets, daily range): BP systolic 93–131; BP diastolic 51–81
--- NOTE | 2025-02-13 00:06 | NUR ---
QBL totaling 135mL
--- NOTE | 2025-02-13 04:07 | NUR ---
Total QBL as of now, is 161mL
[2025-02-13 06:59] LABS: BASOPHILS ABSOLUTE AUTO 0.03 K/mm3 (0.00-0.23); BASOPHILS PERCENT AUTO 0 % (0-2); EOSINOPHILS ABSOLUTE AUTO 0.12 K/mm3 (0.00-0.68); EOSINOPHILS PERCENT AUTO 1 % (0-6); Hematocrit 23.6 % (33.0-51.0); Hemoglobin 7.8 g/dL (11.5-16.0); IMMATURE GRAN ABSOLUTE AUTO 0.13 K/mm3 (0.00-0.10); IMMATURE GRAN PERCENT AUTO 1 % (0-1); LYMPHOCYTES ABSOLUTE AUTO 2.61 K/mm3 (0.84-5.20); LYMPHOCYTES PERCENT AUTO 23 % (21-46); MONOCYTES ABSOLUTE AUTO 1.06 K/mm3 (0.16-1.47); MONOCYTES PERCENT AUTO 9 % (4-13); Mean Corpuscular HGB Conc 33.1 g/dL (31.5-36.5); Mean Corpuscular Volume 81 fL (80-100); NEUTROPHILS ABSOLUTE AUTO 7.54 K/mm3 (1.96-9.15); NEUTROPHILS PERCENT AUTO 66 % (41-73); NRBC ABSOLUTE 0.00 K/mm3 (0.00-0.02); NRBC Auto 0.0 /100 WBC (0.0-0.2); Platelet Count 253 K/mm3 (150-400); RDW Coefficient Variation 12.7 % (11.7-14.2); RDW Standard Deviation 37.5 fL (35.1-46.3)
[2025-02-13] MEDS ORDERED: Betamethasone Sod Phos/Acetate 6 MG/ML 5ML VIAL IM ONE (12:25)
[2025-02-13] MEDS ORDERED: Magnesium Sul 4 GM/Water100 ML 100 ML IV ONE ×2 (12:26→12:30)
[2025-02-13] MEDS ORDERED: Betamethasone Sod Phos/Acetate 6 MG/ML 5ML VIAL ONE (12:26)
[2025-02-13] MEDS ORDERED: Magnesium Sul 4 GM/Water100 ML 100 ML IV SCH (12:30)
--- NOTE | 2025-02-13 17:27 | NUR ---
pt transported by ambulance to [facility]. left at [phone] fht's [phone] fhts [id number] arrival at [facility] , report given at 1540 to suyapa
== END 2025-02-13 14:18 | disposition home or self-care (01) ==
LOC: OBS 22:55 → BC 22:59 → OBS 02-13 00:48 → BC 02-13 00:49
PROVIDERS: ADMIT Obstetrics & Gynecology
DX: O44.13 Complete placenta previa with hemorrhage, third trimester (principal); Z3A.32 32 weeks gestation of pregnancy; Z88.0 Allergy status to penicillin
CPT/HCPCS: 36415; 59025; 76816; 85025; 86850; 86900; 86901; 96365; 96366; 96375; 99213; A9270; G0378; J3411; J3475; J7030; J7120